=== PATIENT | male | born 1970 | race Caucasian/White ===

== ENCOUNTER 2020-05-15 22:12 | Emergency (ER) | payer BC ==
[2020-05-15] MEDS ORDERED: SODIUM CHLORIDE 0.9% 1000ML 1,000 ML IVS ONE (22:39)
[2020-05-15] MEDS ORDERED: SODIUM CHLORIDE 0.9% (FLUSH) 10 ML SYG IV PRN (22:39)
[2020-05-15 23:02] VITALS: BP 144/99; TEMP 97.2; O2SAT 96
== END 2020-05-15 23:00 | disposition left against medical advice (07) ==
LOC: ER 22:12
DX: R50.9 Fever, unspecified (principal); R19.7 Diarrhea, unspecified; Z53.29 Procedure and treatment not carried out because of patient's decision for other reasons